=== PATIENT | female | born 1995 | race Two or more races ===

== ENCOUNTER 2018-04-16 22:09 | Emergency (ER) | payer OTHER ==
[~2018-04-16] VITALS: Ht 157.5 cm; Wt 72.6 kg
[2018-04-16] MEDS ORDERED: Morphine Sulfate 4mg/ml Inj (IV/IM USE ONLY) IVP ONE ×2 (22:30→23:00)
[2018-04-16] MEDS ORDERED: Ketorolac 30mg Inj IV ONE (22:30)
--- NOTE | 2018-04-16 22:30 | NUR ---
ED Nurse Note: RECIEVED PT BIBA FROM HOME, WITH C/O SEVERE, SUDDEN LEFT ABDOMINAL PAIN AT 10/10, TP IS CRYING AND VERY RESTLESS DUE TO PAIN, PT CONSTANTLY ASKING FOR PAIN MEDS, IS VERY ANXIOUS, PT STATES SHE HAS GALLSTONES, DIAGNOSED 1 YEAR AGO DURING , CHILD IS NOW 2 MONTHS OLD, PT DENIES CP, OR ANY OTHER COMPLAINTS, IMMEDIATELY ASSISTED WITH GOWNING AND CARDIAC MONITORING, WILL RESUME CARE ORDERED, MD AT BEDSIDE.
--- NOTE | 2018-04-16 22:47 | Emergency Room Report ---
History of Present Illness General Chief Complaint: Abdominal Pain Source: Patient Present Illness HPI This is a 22-year-old female with a history of gallstone. She presents with chief complaint of right upper quadrant pain. This is a chronic problem. Her gallstones were diagnosed about a year and half ago. Every 2 months or so she would get severe pain that he has go to the ER. This pain episode occurred about 6 hours ago. Pain is to right upper quadrant. Radiating to the back. Has nausea and vomiting but no diarrhea. No fever or chills. Pain is 10 out of 10. No relief with [id number] medication. Has not follow-up with any surgical consult. Allergies: Coded Allergies: No Known Allergies (Unverified , 04/16/18) Patient History Past Medical History: see triage record, old chart reviewed Past Surgical History: none Pertinent Family History: none Social History: Denies: smoking Last Menstrual Period: 04/16/18 Now: No : 2 Para: 1 Immunizations: other Reviewed Nursing Documentation: PMH: Agreed; PSxH: Agreed Nursing Documentation-PMH Past Medical History: No Stated History Review of Systems Eye: Denies: eye pain, blurred vision ENT: Denies: ear pain, nose congestion, throat swelling Respiratory: Denies: cough, shortness of breath Cardiovascular: Denies: chest pain, palpitations Gastrointestinal: Reports: abdominal pain, nausea, vomiting; Denies: diarrhea Musculoskeletal: Denies: back pain, joint pain Skin: Denies: rash Neurological: Denies: headache, numbness Endocrine: Denies: increased thirst, increased urine Hematologic/Lymphatic: Denies: easy bruising All Other Systems: negative except mentioned in HPI Physical Exam Vital Signs Date Time Temp Pulse Resp B/P (MAP) Pulse Ox O2 Delivery O2 Flow Rate FiO2 04/16/18 22:10 97.5 70 16 130/86 99 Room Air vitals rivera [id number] EP Interpretation: reviewed, normal General Appearance: well appearing, no apparent distress, alert Head: normocephalic, atraumatic Eyes: bilateral eye PERRL, bilateral eye EOMI ENT: hearing grossly normal, normal pharynx Neck: full range of motion, supple, no meningismus Respiratory: chest non-tender, lungs clear, normal breath sounds Cardiovascular #1: regular rate, rhythm, no murmur Gastrointestinal: normal bowel sounds, no mass, no organomegaly, no bruit, non- distended, tenderness - Right upper quadrant Musculoskeletal: back normal, gait/station normal, normal range of motion Psychiatric: mood/affect normal Skin: warm/dry Medical Decision Making Diagnostic Impression: Primary Impression: Cholelithiasis Qualified Codes: K80.20 - Calculus of gallbladder without cholecystitis without obstruction ER Course Patient with biliary colic. Pain is controlled now. She has no pain in the right upper quadrant now. She does have an elevated WBC. This could be early cholecystitis versus acute stress response. No evidence of any obstruction. We 'll discharge home with surgical referral. CT/MRI/US Diagnostic Results CT/MRI/US Diagnostic Results : Imaging Test Ordered: Abdominal ultrasound Impression Read by radiologist. Multiple gallstones. Gallbladder wall at 4 mm., Common bile duct normal. Last Vital Signs Date Time Temp Pulse Resp B/P (MAP) Pulse Ox O2 Delivery O2 Flow Rate FiO2 04/16/18 22:10 97.5 70 16 130/86 99 Room Air Status: improved Disposition: HOME, SELF-CARE Condition: Stable Scripts Ibuprofen* (MOTRIN*) 600 Mg Tablet 600 MG ORAL THREE TIMES A DAY, #30 TAB 0 Refills Prov: Franco Blackwell MD 04/17/18 Hydrocodone/Acetaminophen 5-325* (HYDROCODONE/ACETAMINOPHEN 5-325*) 1 Each Tablet 1 TAB ORAL Q6H PRN for For Pain, #20 TAB 0 Refills Prov: Franco Blackwell MD 04/17/18 Additional Instructions: Low-fat diet. Follow-up with your doctor in 7 days. You will need a referral to see a surgeon for surgery. Return if worse. Franco Blackwell MD Apr 16, 2018 22:47
[2018-04-16 22:58] LABS: BASOPHILS % (AUTO) 0.6 % (0.0-2.0); EOSINOPHILS % (AUTO) 0.7 % (0.0-3.0); HEMATOCRIT 40.2 % (37.0-47.0); HEMOGLOBIN 13.4 G/DL (12.0-16.0); LYMPHOCYTES % (AUTO) 22.3 % (20.0-45.0); MEAN CORPUSCULAR VOLUME 87 FL (80-99); MONOCYTES % (AUTO) 4.4 % (1.0-10.0); PLATELET COUNT 228 K/UL (150-450); RED BLOOD COUNT 4.61 M/UL (4.20-5.40); RED CELL DISTRIBUTION WIDTH 11.6 % (11.6-14.8); WHITE BLOOD COUNT 17.7 K/UL (4.8-10.8)
[2018-04-16 23:07] LABS: ANION GAP 10 mmol/L (5-15); BLOOD UREA NITROGEN 20 mg/dL (7-18); CALCIUM 9.2 MG/DL (8.5-10.1); CARBON DIOXIDE 27 MMOL/L (21-32); CHLORIDE 105 MMOL/L (98-107); CREATININE 0.9 MG/DL (0.55-1.30); POTASSIUM 3.1 MMOL/L (3.5-5.1); SODIUM 142 MMOL/L (136-145)
[2018-04-16 23:11] LABS: ALANINE AMINOTRANSFERASE 33 U/L (12-78); ALBUMIN 3.9 G/DL (3.4-5.0); ALKALINE PHOSPHATASE 142 U/L (46-116); ASPARTATE AMINO TRANSFERASE 20 U/L (15-37); BILIRUBIN,TOTAL 0.2 MG/DL (0.2-1.0)
[2018-04-17] MEDS ORDERED: Morphine Sulfate 4mg/ml Inj (IV/IM USE ONLY) IVP ONE
[2018-04-17 00:02] LABS: APPEARANCE,URINE CLEAR; BILIRUBIN, URINE NEGATIVE (NEGATIVE); COLOR,URINE PALE YELLOW; GLUCOSE, URINE (UA) NEGATIVE (NEGATIVE); KETONES,URINE 2+ (NEGATIVE); LEUKOCYTE ESTERASE ,URINE 1+ (NEGATIVE); NITRITE,URINE NEGATIVE (NEGATIVE); PH,URINE 7 (4.5-8.0); PROTEIN,URINE 1+ (NEGATIVE); UROBILINOGEN,URINE NORMAL MG/DL (0.0-1.0)
--- NOTE | 2018-04-17 00:15 | NUR ---
ED Nurse Note: PT MEDICATED AGAIN FOR PAIN, MEDS NOT EFFECTIVE, REMAINS WITH PAIN AT 6/10, PT STATES MEDS WORK ONLY FOR SHORT TIME, NO NAUSEA OR EMESIS, IV SITE PATENT, FLUIDS COMPLETED, PT ROOM CHAGNED FOR MONITORING, WILL CONTINUE TO CLOSELY MONITOR WHILE WAITING FOR RESULTS.
[2018-04-17 00:40] VITALS: BP 111/64
[2018-04-17] MEDS ORDERED: Norco 5mg/325mg tab ORAL ONE (01:30)
[2018-04-17] MEDS ORDERED: IBUPROFEN600 MG ORAL (01:42)
[2018-04-17] MEDS ORDERED: HYDROCODON-ACE1 EA15 ORAL (01:42)
[2018-04-17 02:00] VITALS: BP 116/61
--- NOTE | 2018-04-17 02:00 | NUR ---
ED Nurse Note: pt being d/c to home via taxi, pt is awake, alert and oriented x 4, ambulatory, no cp, no sob, pt pain level at 6/10, pt to be given norco prior to discharge per md, pt can not get prescription tonight, pt also given f/u info, after care instructions and re-verbalizes importance for md f/u and proper medication administration, pt iv line ane armband removed without complications, nad ntoed during d/c.
[2018-04-17 02:19] VITALS: BP 116/61
--- NOTE | 2018-04-17 12:48 | Diagnostic Imaging Report ---
Indication:Abdominal pain Technique: Grayscale and duplex Doppler imaging of the abdomen performed. Comparison: None Findings: The liver is unremarkable. The gallbladder is notable for mild wall thickening and gallstones with a negative sonographic Irwin sign per technologist. The demonstrated part of the pancreas, aorta and IVC show no abnormalities. CBD is 3 mm. Both kidneys appear unremarkable. The spleen is normal in size. There is no biliary ductal dilatation identified. Doppler evaluation of the main portal vein shows patency. There is no ascites. No hydronephrosis seen. Impression: Cholelithiasis with wall thickening. Please correlate clinically for cholecystitis. No biliary ductal dilatation.
== END 2018-04-17 02:20 | disposition home or self-care (01) ==
LOC: EDBD 22:09 → EMR 22:27
DX: K80.20 Calculus of gallbladder without cholecystitis without obstruction (principal)
CPT/HCPCS: 36415; 76700; 80053; 80307; 81003; 81025; 83690; 85025; 96361; 96374; 96375; 96376; 99284; J1885; J2270; J2405